=== PATIENT | male | born 1960 | race American Indian/Alaskan Native ===

== ENCOUNTER 2016-09-18 21:54 | Inpatient (IN) | payer MEDICAID ==
[2016-09-18 21:54] VITALS: BMI 32.5
--- NOTE | 2016-09-18 22:43 | C.PDOC ---
History Of Present Illness Patient presents to the ED complaining of suicidal ideation. Patient notes he has a plan of jumping in front of a train. He also complains of being depressed. Patient admits to drug abuse. Patient denies homicidal ideation or any other complaints at this time. Time Seen by Provider: 09/18/16 22:43 Chief Complaint (Nursing): Psychiatric Evaluation History Per: Patient History/Exam Limitations: no limitations Onset/Duration Of Symptoms: Other Suicide/Self Injury Attempted (Context): None Modifying Factor(s): Other Severity: None Pain Scale Rating Of: 0 Associated Symptoms: Depression, Suicidal Thoughts, Suicidal Plan Involuntary Hold By: None Recent travel outside of the [place]: No Additional History Per: Patient Past Medical History Reviewed: Historical Data, Nursing Documentation, Vital Signs Vital Signs: Last Vital Signs Temp 98.5 F 09/18/16 22:11 Pulse 93 H 09/18/16 22:11 Resp 19 09/18/16 22:11 BP 147/74 09/18/16 22:11 Pulse Ox 99 09/18/16 22:51 - Medical History PMH: Anxiety - [facility] DETOXIFICATION SERVICES FOR SUBSTANCE ABUSE TREATMENT (05/19/16) DRUG ADDICT COUNSELLING (12/24/14) DRUG DETOXIFICATION (12/24/14) GROUP CAPONIZER FOR SUBSTANCE ABUSE TREATMENT, PSYCHOEDUCATION (05/19/16) Family History: States: Unknown Family Hx - Social History Hx Tobacco Use: No Hx Alcohol Use: Yes Hx Substance Use: Yes (heroin, xanax) - Immunization History Hx Tetanus Toxoid Vaccination: No Hx Influenza Vaccination: Yes Hx Pneumococcal Vaccination: No Review Of Systems Psych: Positive for: Depression, Suicidal ideation. Negative for: Other ( homicidal ideation) Physical Exam - Physical Exam Appears: Non-toxic, No Acute Distress Skin: Warm, Dry Head: Atraumatic, Normacephalic Eye(s): bilateral: EOMI Oral Mucosa: Moist Neck: Supple Chest: Symmetrical Cardiovascular: Rhythm Regular Respiratory: No Rales, No Rhonchi, No Wheezing Extremity: Bilateral: Atraumatic Neurological/Psych: Oriented x3 ED Course And Treatment - Laboratory Results Result Diagrams: 09/18/16 22:48 09/18/16 22:48 O2 Sat by Pulse Oximetry: 99 (room air) Pulse Ox Interpretation: Normal Progress Note: Plan: Labs Disposition Discussed With : Doreen Quevedo Comment: accepted the pt on her service and took over the care at 11:45 PM Doctor Will See Patient In The: Hospital Counseled Patient/Family Regarding: Studies Performed, Diagnosis - Disposition Disposition: HOSPITALIZED Disposition Time: 22:43 Condition: FAIR - POA Present On Arrival: Poor Glycemic Control - Clinical Impression Clinical Impression: Drug abuse, Depression - Scribe Statement The provider has reviewed the documentation as recorded by the Erwinibe Lilly Vila Provider Attestation: All medical record entries made by the Scribe were at my direction and personally dictated by me. I have reviewed the chart and agree that the record accurately reflects my personal performance of the history, physical exam, medical decision making, and the department course for this patient. I have also personally directed, reviewed, and agree with the discharge instructions and disposition. Decision To Admit - Pt Status Changed To: Hospital Disposition Of: Inpatient - Admit Certification Admit to Inpatient:: After my assessment, the patient will require hospitalization for at least two midnights. This is because of the severity of symptoms shown, intensity of services needed, and/or the medical risk in this patient being treated as an outpatient. - InPatient: Physician Admission Certification: I certify that this patient requires 2 or more midnights of care for the following reason:: After my assessment, the patient will require hospitalization for at least two midnights. This is because of the severity of symptoms shown, intensity of services needed, and/or the medical risk in this patient being treated as an outpatient. - . Bed Request Type: Psychiatry Admitting Physician: Doreen Quevedo Patient Diagnosis: Drug abuse, Depression
[2016-09-18 22:51] LABS: BASO # 0.1 K/uL (0.0-0.2); BASO % 0.9 % (0.0-2.0); EOS # 0.2 K/uL (0.0-0.7); EOS % 1.4 % (0.0-4.0); HEMATOCRIT 35.7 % (35.0-51.0); LYMPH # 2.8 K/uL (1.0-4.3); LYMPH % 24.2 % (20.0-40.0); MEAN CORPUSCULAR HGB CONC 33.7 g/dL (33.0-37.0); MEAN PLATELET VOLUME 8.9 fL (7.2-11.7); MONO # 0.6 K/uL (0.0-0.8); RED CELL DISTRIBUTION WIDTH 14.3 % (11.5-14.5); WHITE BLOOD COUNT 11.7 K/uL (4.8-10.8)
[2016-09-18 22:59] LABS: CHLORIDE 99 mmol/L (98-107); SODIUM 138 mmol/L (132-148)
[2016-09-18 23:00] LABS: POTASSIUM 3.1 mmol/L (3.6-5.2)
[2016-09-18 23:02] LABS: ALB/GLOB RATIO 1.2 (1.0-2.1); ALKALINE PHOSPHATASE 51 U/L (38-126); ALT/SGPT 34 U/L (21-72); AST/SGOT 34 U/L (17-59); BILIRUBIN,TOTAL 0.5 mg/dL (0.2-1.3); BLOOD UREA NITROGEN 10 mg/dL (9-20); CARBON DIOXIDE 28 mmol/L (22-30); GFR AFRICAN-AMERICAN > 60; GLUCOSE,RANDOM 138 mg/dL (75-110)
[2016-09-18 23:03] LABS: ALCOHOL SERUM 14 mg/dl (0-10); CALCIUM 8.2 mg/dl (8.6-10.4); RBC URINE 2 /hpf (0-3); URINE BACTERIA RARE (<OCC); URINE BILIRUBIN NEGATIVE (NEGATIVE); URINE BLOOD NEGATIVE (NEGATIVE); URINE COLOR Amber (YELLOW); URINE GLUCOSE (UA) NORMAL (Normal); URINE KETONE TRACE mg/dL (NEGATIVE); URINE LEUKOCYTE ESTERASE NEG Leu/uL (Negative); URINE PROTEIN 1+ mg/dL (NEGATIVE); WBC URINE 5 /hpf (0-5)
[2016-09-19] MEDS ORDERED: guaiFENesin DM 200 mg-20 mg/10 ml UD PO PRN (10:44)
[2016-09-19] MEDS ORDERED: Aluminum Hydroxide/Magnesium Hydroxide Susp (30 mL) PO PRN (10:44)
--- NOTE | 2016-09-19 10:48 | PCM.PSYCH ---
Initial Psychiatric Evaluation - Initial Psychiatric Evaluation Type of Admission: Voluntary Legal Status: Capacity Chief Complaint (in patient's own words): "I was feeling depressed and suicidal " History of Present Illness and Precipitating Events: Patient is a 55 year old male. He is single and has no children. 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 Patient was [place] to the ER [place] [employer] [place] had a plan to jump [place] front of a train. A woman who was there called her and they took him to the ER. Patient denies any psychiatric hospitalizations in the past. Patient uses 7 bags of heroin a day (intranasal). His last use was 3 bags yesterday. Patient has been using heroin for 20 years. Patient also takes one 2 mg Xanax every day. Patient denies drinking alcohol often but had one beer yesterday. Patient smokes 1/2 pack of cigarettes a day. Patient says he became suicidal because his mom has colon cancer but he says she has had it for two years and is doing well. Patient has been to detox multiple times in the past. Most recent hospitalization at [facility] was in May for opiate dependence and he says he relapsed right after. Patient says he has never been to inpt rehab. Patient reports depressed mood, and reports feelings of hopelessness and helplessness because of his living and financial situation. He also reports "My mother was just diagnosed with cancer (colon);" Now, she's in chemo;" She says she can't live without me;" He denies any visual or auditory hallucinations, paranoid or racing thoughts. He complains of withdrawal symptoms stomach pain, diarrhea, n/v, and chills. PsychHx: Anxiety, Substance Abuse Disorder. PMH: denies Allergies: denies FamPsychHx: denies Current Medications: Active Medications Generic Name Dose Route Start Last Admin Trade Name Freq PRN Reason Stop Dose Admin Al Hydrox/Mg Hydrox/Simethicone 30 ml 09/19/16 10:44 Maalox 30 Ml PO TID PRN Indigestion / Heartburn Chlordiazepoxide 25 mg 09/19/16 03:01 Librium PO Q4H PRN Opiate and alcohol withdrawal Clonidine HCl 0.1 mg 09/19/16 10:44 Catapres PO Q8 PRN COWS Score More or Equal to 5 Guaifenesin/Dextromethorphan 10 ml 09/19/16 10:44 Robitussin Dm PO Q4H PRN Cough and congestion Hydroxyzine HCl 25 mg 09/19/16 03:01 Atarax PO Q4H PRN Anxiety Loperamide HCl 2 mg 09/19/16 10:44 Imodium PO Q8 PRN Diarrhea Methadone HCl 0 mg 09/20/16 10:00 Methadone PO 09/23/16 09:59 DAILY JADE Taper Nicotine 1 patch 09/20/16 10:00 Nicoderm Cq TD DAILY JADE Ondansetron HCl 4 mg 09/19/16 10:44 Zofran Tab PO Q8 PRN Nausea/Vomiting Pseudoephedrine HCl 60 mg 09/19/16 10:44 Sudafed Tab PO QID PRN Nasal/Sinus Congestion Trazodone HCl 50 mg 09/19/16 03:01 Desyrel PO HS PRN Insomnia Past Psychiatric History - Past Psychiatric History Previous Treatment History: Inpatient Pertinent Medical Hx (Current Medical&Sleep Prob, Allergies): Allergies Allergy/AdvReac Type Severity Reaction Status Date / Time No Known Allergies Allergy Verified 09/18/16 22:13 No Known Home Med 09/18/16 Review of Systems - Review of Systems All systems: reviewed and no additional remarkable complaints except - Psychiatric Psychiatric: Anxiety, Behavioral Changes, Depression, Irritability, Suicidal Ideation Mental Status Examination - Personal Presentation Personal Presentation: Looks stated age - Affect Affect: Constricted, Depressed - Motor Activity Motor Activity: Calm - Reliability in Providing Information Reliability in Providing Information: Good - Speech Speech: Organized - Mood Mood: Depressed, Anxious - Formal Thought Process Formal Thought Process: No Impairment - Obsessions/Compulsions Obsessions: No Compulsions: No - Cognitive Functions Orientation: Person, Place, Situation, Time Sensorium: Alert Attention/Concentration: Attentive Abstract Thinking: [place] Estimate of Intelligence: Below average Judgement: Imparied, as evidence by: Poor judgement, Imparied, as evidence by: Lack of insight into illness - Risk Risk: Suicidal, Diminished functioning - Strength & Assets Inventory Strength & Assets Inventory: Cooperative DSM 5 DX - DSM 5 DSM 5 Diagnosis: Major depressive disorder single episode severe without psychotic features Opiate use disorder severe Opiate withdrawal Sedative/hypnotic use disorder moderate - Recommended/Plan of Treatment Treatment Recommendations and Plan of Treatment: Major depressive disorder single episode severe without psychotic features CBT Psychoeducation Supportive therapy, group therapy, individual therapy Celexa 10 mg PO Daily by mouth twice a day Trazodone 50 mg by mouth daily at bedtime Opioid use disorder severe CBT Psychoeducation Supportive therapy, individual therapy Use [place] for abstinence Opioid withdrawal CBT Psychoeducation Supportive therapy, individual therapy Clonidine when necessary Methadone taper Sedative/hypnotic use disorder moderate Monitor signs and symptoms Use [place] for abstinence - Smoking Cessation Smoking Cessation Initiated: No
--- NOTE | 2016-09-20 14:47 | PCM.PYCHPN ---
Psychiatric Progress Note - Psychiatric Progress Note Patient seen today, length of contact: 16 min Patient Chief Complaint: "I am feeling depressed " Problems Identified/Issues Discussed: Patient seen and evaluated, chart reviewed and discussed with the nurse. Patient remained isolated, confined and withdrawn. He reports depressed mood and feelings of hopelessness and helplessness. He reports withdrawal symptoms including cramps, sweating, headaches anxiety. But remained isolated and withdrawn. He is taking medications and denies any side effects Supportive therapy and psychoeducation were given. Medication Change: Yes (Methadone taper) Medical Record Reviewed: Yes Mental Status Examination - Cognitive Function Orientation: Person, Place, Situation, Time Memory: Intact Attention: WNL Concentration: Poor Association: WNL Fund of Knowledge: Poor - Mood Mood: Depressed, Anxious - Affect Affect: Constricted, Depressed - Speech Speech: Soft - Formal Thought Process Formal Thought Process: No Impairment - Suicidal Ideation Suicidal Ideation: No - Homicidal Ideation Homicidal Ideation: No Goal/Treatment Plan - Goal/Treatment Plan Need for Continued Stay: Discharge may exacerbated symptoms, Severe functional impairment Progress Toward Problem(s) and Goals/Treatment Plan: Major depressive disorder single episode severe without psychotic features CBT Psychoeducation Supportive therapy, group therapy, individual therapy Celexa 10 mg PO Daily by mouth twice a day Trazodone 50 mg by mouth daily at bedtime Opioid use disorder severe CBT Psychoeducation Supportive therapy, individual therapy Use [place] for abstinence Opioid withdrawal CBT Psychoeducation Supportive therapy, individual therapy Clonidine when necessary Methadone taper Sedative/hypnotic use disorder moderate Monitor signs and symptoms Use [place] for abstinence - Smoking Cessation Smoking Cessation Initiated: No
--- NOTE | 2016-09-21 22:03 | PCM.PYCHPN ---
Psychiatric Progress Note - Psychiatric Progress Note Patient seen today, length of contact: 16 min Patient Chief Complaint: "I am feeling better " Problems Identified/Issues Discussed: Patient seen and evaluated, chart reviewed and discussed with the nurse. As per the staff, remained isolated, confined and withdrawn. He still reports withdrawal symptoms including cramps, sweating, headaches anxiety. He reports a bit improvement in his mood but reports feelings of hopelessness and helplessness. He is taking medications and denies any side effects Supportive therapy and psychoeducation were given. Medication Change: Yes (methadone taper) Medical Record Reviewed: Yes Mental Status Examination - Cognitive Function Orientation: Person, Place, Situation, Time Memory: Intact Attention: WNL Concentration: Poor Association: WNL Fund of Knowledge: Poor - Mood Mood: Depressed, Anxious - Affect Affect: Constricted, Depressed - Speech Speech: Soft - Formal Thought Process Formal Thought Process: No Impairment - Suicidal Ideation Suicidal Ideation: No - Homicidal Ideation Homicidal Ideation: No Goal/Treatment Plan - Goal/Treatment Plan Need for Continued Stay: Discharge may exacerbated symptoms, Severe functional impairment Progress Toward Problem(s) and Goals/Treatment Plan: 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
--- NOTE | 2016-09-22 17:41 | PCM.PYCHPN ---
Psychiatric Progress Note - Psychiatric Progress Note Patient seen today, length of contact: 16 min Patient Chief Complaint: "I am still experiencing withdrawal s/s " Problems Identified/Issues Discussed: Patient seen and evaluated, chart reviewed and discussed with the nurse. Staff reports that patient remained isolated, and withdrawn. He reports a bit improvement in is mood and reports withdrawal symptoms cramps, sweating, and anxiety. He is taking medications and denies any side effects Supportive therapy and psychoeducation were given. Medication Change: Yes (Methadone taper) Medical Record Reviewed: Yes Mental Status Examination - Cognitive Function Orientation: Person, Place, Situation, Time Memory: Intact Attention: WNL Concentration: Poor Association: WNL Fund of Knowledge: Poor - Mood Mood: Depressed, Anxious - Affect Affect: Constricted, Depressed - Speech Speech: Soft - Formal Thought Process Formal Thought Process: No Impairment - Suicidal Ideation Suicidal Ideation: No - Homicidal Ideation Homicidal Ideation: No Goal/Treatment Plan - Goal/Treatment Plan Need for Continued Stay: Discharge may exacerbated symptoms, Severe functional impairment Progress Toward Problem(s) and Goals/Treatment Plan: Major depressive disorder single episode severe without psychotic features CBT Psychoeducation Supportive therapy, group therapy, individual therapy Celexa 10 mg PO Daily by mouth twice a day Trazodone 50 mg by mouth daily at bedtime Opioid use disorder severe CBT Psychoeducation Supportive therapy, individual therapy Use [place] for abstinence Opioid withdrawal CBT Psychoeducation Supportive therapy, individual therapy Clonidine when necessary Methadone taper Sedative/hypnotic use disorder moderate Monitor signs and symptoms Use [place] for abstinence - Smoking Cessation Smoking Cessation Initiated: No
[2016-09-23 08:10] VITALS: O2SAT 99
[2016-09-23 09:34] LABS: CHLORIDE 97 mmol/L (98-107); POTASSIUM 4.2 mmol/L (3.6-5.2); SODIUM 137 mmol/L (132-148)
[2016-09-23 09:36] LABS: GFR AFRICAN-AMERICAN > 60
[2016-09-23 09:37] LABS: ALKALINE PHOSPHATASE 53 U/L (38-126); ALT/SGPT 20 U/L (21-72); AST/SGOT 19 U/L (17-59); BILIRUBIN,TOTAL 0.6 mg/dL (0.2-1.3); BLOOD UREA NITROGEN 8 mg/dL (9-20); CARBON DIOXIDE 29 mmol/L (22-30); GLUCOSE,RANDOM 191 mg/dL (75-110); TOTAL PROTEIN 7.2 g/dL (6.3-8.3)
[2016-09-23 09:38] LABS: CALCIUM 8.6 mg/dl (8.6-10.4)
[2016-09-25 08:20] VITALS: RESP 18; TEMP 98.2
--- NOTE | 2016-09-25 09:48 | PCM.PYCHDC ---
Mental Status Examination - Mental Status Examination Orientation: Person, Place, Situation, Time Memory: Intact Mood: Neutral Affect: Constricted Speech: Soft Attention: WNL Concentration: WNL Association: WNL Fund of Knowledge: WNL Formal Thought Process: No Impairment Description of patient's judgement and insight: good, fair Psychotic Thoughts and Behaviors: Denies any AVH Suicidal Ideation: No Current Homicidal Ideation?: No Discharge Summary - Discharge Note Reason for Hospitalization: Patient is a 55 year old male. He is single and has no children. 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 Patient was [place] to the ER [place] [employer] [place] and had a [place] front of a train. A woman who was there called her and they took him to the ER. Patient denies any psychiatric hospitalizations in the past. Patient uses 7 bags of heroin a day (intranasal). His last use was 3 bags yesterday. Patient has been using heroin for 20 years. Patient also takes one 2 mg Xanax every day. Patient denies drinking alcohol often but had one beer yesterday. Patient smokes 1/2 pack of cigarettes a day. Patient says he became suicidal because his mom has colon cancer but he says she has had it for two years and is doing well. Patient has been to detox multiple times in the past. Most recent hospitalization at [facility] was in May for opiate dependence and he says he relapsed right after. Patient says he has never been to inpt rehab. Patient reports depressed mood, and reports feelings of hopelessness and helplessness because of his living and financial situation. He also reports "My mother was just diagnosed with cancer (colon);" Now, she's in chemo;" She says she can't live without me;" He denies any visual or auditory hallucinations, paranoid or racing thoughts. He complains of withdrawal symptoms stomach pain, diarrhea, n/v, and chills. Consultations:: List each consultation separately and include: 1. Reason for request. 2. Findings. 3. Follow-up Summary of Hospital Course include:: 1. Description of specific treatment plan utilized for patients during their course of treatmen. 2. Summarize the time- course for resolution of acute symptoms and/or regressed behaviors. 3. Describe issues identified and worked on during hospitalization. 4. Describe medication utilized. 5. Describe medical problems identified and treated. 6. Reassessment of suicide risk Summary of Hospital Course: During the course of his stay, patient (pt) started progressively improving and he no longer remained irritable, depressed, suicidal and agitated. His mood and withdrawal symptoms were improved and he started attending groups and meetings and started socializing. Patient denied any feelings of hopelessness, helplessness, and worthlessness, denied any problem with the sleep or appetite, denied suicidal ideation or homicidal ideation. Pt denied any auditory or visual hallucinations. Some changes were made in his current medications and patient was discharged on following medications. He tolerated these medications very well and denied any side effects. - Final Diagnosis (DSM 5) Condition upon Discharge: FAIR DSM 5: Major depressive disorder single episode severe without psychotic features Opioid use disorder severe Opioid withdrawal Sedative/hypnotic use disorder moderate Disposition: HOME/ ROUTINE Follow-up Treatment Plan: Education: Pt was educated and counseled about the risks and benefits of taking and not taking medications. Pt was educated and counseled about the risks of drinking and abusing drugs. Pt was educated and counseled to go to the ER or call 911 if pt develop suicidal ideation or homicidal ideation, worsening of symptoms or severe side effects of the meds. Prescriptions/Medication Reconciliation: Citalopram [celeXA] 20 mg PO DAILY #30 tab traZODone [Desyrel] 50 mg PO HS PRN #30 tab PRN Reason: Insomnia - Smoking Cessation Smoking Cessation Medication prescribed: No - Antipsychotic Medications Pt discharged on 2 or more routine antipsychotic medications: No
[2016-09-25 09:52] VITALS: BP 134/83; PULSE 85
--- NOTE | 2016-09-27 06:19 | PCM.PYCHPN ---
Psychiatric Progress Note - Psychiatric Progress Note Patient seen today, length of contact: 16 min Patient Chief Complaint: I am sad because i had to put my mother in a home and now i am homeless Problems Identified/Issues Discussed: symptoms of depression and their management opioid withdrawal symptoms Medical Problems: nothing acute Diagnostic Results: reviewed DSM 5 Symptoms Update: not sleeping irritable aenergic Medication Change: Yes (methadone taper) Medical Record Reviewed: Yes Mental Status Examination - Cognitive Function Orientation: Place, Situation, Time Memory: Intact Attention: WNL Concentration: Poor Association: WNL Fund of Knowledge: Poor - Mood Mood: Depressed, Anxious - Affect Affect: Constricted, Depressed - Speech Speech: Appropriate - Formal Thought Process Formal Thought Process: No Impairment - Suicidal Ideation Suicidal Ideation: No Goal/Treatment Plan - Goal/Treatment Plan Need for Continued Stay: Remain at risks for inpatient hospitalization, Discharge may exacerbated symptoms, Severe functional impairment Progress Toward Problem(s) and Goals/Treatment Plan: MDD attending groups psychoeducation on meds and sobriety - Smoking Cessation Smoking Cessation Initiated: No
--- NOTE | 2016-09-27 06:27 | PCM.PYCHPN ---
Psychiatric Progress Note - Psychiatric Progress Note Patient seen today, length of contact: 16 min Patient Chief Complaint: i dcon'ty want to i want to live life Problems Identified/Issues Discussed: after care marjorie BETANCOURT Medical Problems: npthing acute Diagnostic Results: reviewed DSM 5 Symptoms Update: energy fair motivation not so good Medication Change: Yes (methadone taper) Medical Record Reviewed: Yes Mental Status Examination - Cognitive Function Orientation: Place, Situation, Time Memory: Intact Attention: WNL Concentration: Poor Association: WNL Fund of Knowledge: Poor - Mood Mood: Depressed, Anxious - Affect Affect: Constricted, Depressed - Speech Speech: Appropriate - Formal Thought Process Formal Thought Process: No Impairment - Suicidal Ideation Suicidal Ideation: No - Homicidal Ideation Homicidal Ideation: No Goal/Treatment Plan - Goal/Treatment Plan Need for Continued Stay: Remain at risks for inpatient hospitalization, Discharge may exacerbated symptoms, Severe functional impairment Progress Toward Problem(s) and Goals/Treatment Plan: attending groups gaining insight into how substance abuse affects all aspects of his life - Smoking Cessation Smoking Cessation Initiated: No
== END 2016-09-25 11:20 | disposition home or self-care (01) | DRG 430 ==
LOC: C.ER 21:54 → C.5E 23:43
PROVIDERS: ADMIT Psychiatry & Neurology Psychiatry; ATTEND Psychiatry & Neurology Psychiatry
PROC: GZHZZZZ Group Psychotherapy (ICD-10-PCS; principal; 2016-09-18)
PROC: GZ58ZZZ Individual Psychotherapy, Cognitive-Behavioral (ICD-10-PCS; 2016-09-18)
PROC: GZ56ZZZ Individual Psychotherapy, Supportive (ICD-10-PCS; 2016-09-18)
PROC: HZ52ZZZ Individual Psychotherapy for Substance Abuse Treatment, Cognitive-Behavioral (ICD-10-PCS; 2016-09-18)
PROC: HZ59ZZZ Individual Psychotherapy for Substance Abuse Treatment, Supportive (ICD-10-PCS; 2016-09-18)
PROC: HZ56ZZZ Individual Psychotherapy for Substance Abuse Treatment, Psychoeducation (ICD-10-PCS; 2016-09-18)
PROC: HZ2ZZZZ Detoxification Services for Substance Abuse Treatment (ICD-10-PCS; 2016-09-18)
DX: F32.2 Major depressive disorder, single episode, severe without psychotic features (principal); F11.23 Opioid dependence with withdrawal; Z59.0 Homelessness; F17.210 Nicotine dependence, cigarettes, uncomplicated

== ENCOUNTER 2016-11-09 23:16 | Emergency (ER) | payer MEDICAID ==
[2016-11-09 23:17] VITALS: BMI 32.5
[2016-11-09 23:25] VITALS: O2SAT 100
[2016-11-10 00:24] LABS: BASO # 0.2 K/uL (0.0-0.2); BASO % 1.4 % (0.0-2.0); EOS # 0.2 K/uL (0.0-0.7); HEMOGLOBIN 12.9 g/dL (12.0-18.0); LYMPH # 3.1 K/uL (1.0-4.3); MEAN CELL VOLUME 85.2 fL (80.0-94.0); MEAN CORPUSCULAR HEMOGLOBIN 28.6 pg (27.0-31.0); MEAN CORPUSCULAR HGB CONC 33.6 g/dL (33.0-37.0); MEAN PLATELET VOLUME 10.5 fL (7.2-11.7); MONO # 0.7 K/uL (0.0-0.8); MONO % 5.9 % (0.0-10.0); NEUT # 6.9 K/uL (1.8-7.0); NEUT % 62.7 % (50.0-75.0); RBC 4.51 Mil/uL (4.40-5.90); RED CELL DISTRIBUTION WIDTH 14.3 % (11.5-14.5)
[2016-11-10 00:34] LABS: ALBUMIN 3.8 g/dL (3.5-5.0)
[2016-11-10 00:36] LABS: AST/SGOT 26 U/L (17-59); GFR AFRICAN-AMERICAN > 60; GFR NON-AFRICAN AMERICAN > 60
[2016-11-10 00:37] LABS: ALB/GLOB RATIO 1.1 (1.0-2.1); ALT/SGPT 24 U/L (21-72); BLOOD UREA NITROGEN 12 mg/dL (9-20); CALCIUM 8.8 mg/dl (8.6-10.4)
[2016-11-10 01:00] LABS: SQUAMOUS EPITHIAL 1 /hpf (0-5); URINE BACTERIA RARE (<OCC); URINE BILIRUBIN NEGATIVE (NEGATIVE); URINE BLOOD NEGATIVE (NEGATIVE); URINE CLARITY Hazy (Clear); URINE COLOR Amber (YELLOW); URINE GLUCOSE (UA) NORMAL (Normal); URINE LEUKOCYTE ESTERASE NEG Leu/uL (Negative); URINE NITRATE NEGATIVE (NEGATIVE); URINE PROTEIN 1+ mg/dL (NEGATIVE)
[2016-11-10 01:08] LABS: BARBITURATES, UR NEGATIVE (NEGATIVE)
[2016-11-10 01:12] LABS: PHENCYCLIDINE, UR NEGATIVE (NEGATIVE)
[2016-11-10 01:20] LABS: BENZODIAZEPINES, UR POSITIVE (NEGATIVE); OPIATES, UR POSITIVE (NEGATIVE)
--- NOTE | 2016-11-10 01:20 | C.PDOC ---
History Of Present Illness 55 year old male who presents to the ER for heroin abuse and depression; he was just discharged from another psychiatric treatment center at a local hospital. Patient denies physical complaints at this time. Time Seen by Provider: 11/09/16 23:49 Chief Complaint (Nursing): Psychiatric Evaluation History Per: Patient History/Exam Limitations: no limitations Onset/Duration Of Symptoms: Hrs Current Symptoms Are (Timing): Still Present Suicide/Self Injury Attempted (Context): None Modifying Factor(s): Narcotics Associated Symptoms: Depression. denies: Suicidal Thoughts, Suicidal Plan Involuntary Hold By: None Recent travel outside of the [place]: No Past Medical History Reviewed: Historical Data, Nursing Documentation, Vital Signs Vital Signs: Last Vital Signs Temp 98.3 F 11/10/16 01:27 Pulse 80 11/10/16 01:27 Resp 18 11/10/16 01:27 BP 158/85 H 11/10/16 01:27 Pulse Ox 100 11/10/16 01:27 - Medical History PMH: Anxiety Surgical History: No Surg Hx - [facility] DETOXIFICATION SERVICES FOR SUBSTANCE ABUSE TREATMENT (09/18/16) DRUG ADDICT COUNSELLING (12/24/14) DRUG DETOXIFICATION (12/24/14) GROUP SALES SERVICE TECHNICIAN FOR SUBSTANCE ABUSE TREATMENT, PSYCHOEDUCATION (05/19/16) GROUP PSYCHOTHERAPY (09/18/16) INDIV PSYCHOTHERAPY FOR SUBSTANCE ABUSE TREATMENT, SUPPORT (09/18/16) INDIV PSYCHOTHERAPY FOR SUBSTANCE ABUSE, COGNITIV BEHAVIORAL (09/18/16) INDIV PSYCHOTHERAPY FOR SUBSTANCE ABUSE, PSYCHOEDUCATION (09/18/16) INDIVIDUAL PSYCHOTHERAPY, COGNITIVE-BEHAVIORAL (09/18/16) INDIVIDUAL PSYCHOTHERAPY, SUPPORTIVE (09/18/16) Family History: States: Unknown Family Hx - Social History Hx Tobacco Use: No Hx Alcohol Use: No Hx Substance Use: Yes - Immunization History Hx Tetanus Toxoid Vaccination: No Hx Influenza Vaccination: Yes Hx Pneumococcal Vaccination: No Review Of Systems Constitutional: Negative for: Fever, Chills Gastrointestinal: Negative for: Nausea, Vomiting Psych: Positive for: Depression Physical Exam - Physical Exam Appears: Non-toxic, Other (Awake, Alert) Skin: Normal Color, Warm, Dry Head: Atraumatic, Normacephalic Eye(s): bilateral: Normal Inspection, PERRL, EOMI Oral Mucosa: Moist Chest: Symmetrical, No Tenderness Cardiovascular: Rhythm Regular, No Murmur Respiratory: Normal Breath Sounds, No Rales, No Rhonchi, No Wheezing Neurological/Psych: Oriented x3, Normal Speech, Normal Cognition ED Course And Treatment - Laboratory Results Result Diagrams: 11/10/16 00:20 11/10/16 00:20 O2 Sat by Pulse Oximetry: 100 (Room air) Pulse Ox Interpretation: Normal Progress Note: Case discussed with Crisis. Medical Decision Making Medical Decision Making: persistent heroine abuse, just d/c'd earlier today from another psych eval evaled by our Crisis team, ok to d/c. Disposition Doctor Will See Patient In The: Office Counseled Patient/Family Regarding: Studies Performed, Diagnosis - Disposition Referrals: Alcoholics Anonymous [Outside] [facility] [Outside] [facility] [Outside] Disposition: HOME/ ROUTINE Disposition Time: 01:20 Condition: GOOD Instructions: Narcotic Abuse (ED) - Clinical Impression Clinical Impression: Opioid dependence - Scribe Statement The provider has reviewed the documentation as recorded by the Scribimelda Sharma All medical record entries made by the Scribe were at my direction and personally dictated by me. I have reviewed the chart and agree that the record accurately reflects my personal performance of the history, physical exam, medical decision making, and the department course for this patient. I have also personally directed, reviewed, and agree with the discharge instructions and disposition.
[2016-11-10 01:28] VITALS: BP 158/85; PULSE 80; RESP 18; TEMP 98.3
== END 2016-11-10 01:38 | disposition home or self-care (01) ==
LOC: C.ER 23:16
DX: F11.20 Opioid dependence, uncomplicated (principal)